=== PATIENT | female | born 1980 | race Caucasian/White ===

== ENCOUNTER 2020-02-17 06:19 | Observation (INO) | payer MEDICAID ==
[2020-02-14 09:49] LABS: BLOOD UREA NITROGEN,BUN 13 mg/dL (7.0-18.0); CARBON DIOXIDE,CO2 27.5 mmol/L (21.0-32.0); CHLORIDE,CL 107 mmol/L (98-107); GLUCOSE RANDOM 78 mg/dL (74-106); SODIUM,NA 143 mmol/L (136-145)
[2020-02-17] MEDS ORDERED: Fluorescein 5 ML Vial ONE (07:13)
[2020-02-17] MEDS ORDERED: Bupivacaine 0.25% 10 ML SDV ONE (07:13)
[2020-02-17] MEDS ORDERED: Bupivacaine 25%/EPINEPHrine/PF 30 ML ONE ×2 (07:14→13:24)
[2020-02-17] MEDS ORDERED: fentaNYL 100 MCG/2 ML SDV ONE (07:19)
[2020-02-17] MEDS ORDERED: Propofol 200 MG/20 ML SDV ONE (07:19)
[2020-02-17] MEDS ORDERED: Midazolam 1 MG/ML 2 ML SDV ONE (07:19)
[2020-02-17] MEDS ORDERED: Succinylcholine/Sod PF 100 MG/5 ML SYRINGE IV ONE (07:20)
[2020-02-17] MEDS ORDERED: Rocuronium Bromide 50 MG/5 ML Syringe ONE (07:20)
--- NOTE | 2020-02-17 07:23 | PCM.PREANE ---
Preanesthetic Assessment - Anesthesia/Transfusion/Family Hx Anesthesia History: Prior Anesthesia Without Reaction Other Type of Anesthesia Reaction Comment: "I cry when I wake up from anesthesia" Family History of Anesthesia Reaction: No Transfusion History: No Prior Transfusion(s) Type of Transfusion Reactions: Reports: Unknown Intubation History: Unknown - Review of Systems General: No Symptoms Pulmonary: No Symptoms Cardiovascular: No Symptoms Gastrointestinal: No Symptoms Neurological: No Symptoms Other: Reports: None - Physical Assessment Height: 5 ft 9.5 in Weight: 88.451 kg ASA Class: 2 Mental Status: Alert & Oriented x3 Airway Class: Mallampati = 2 Dentition: Reports: Normal Dentition Thyro-Mental Finger Breadths: 3 Mouth Opening Finger Breadths: 3 ROM/Head Extension: Full Lungs: Clear to Auscultation, Normal Respiratory Effort Cardiovascular: Regular Rate, Regular Rhythm - Lab Values: Laboratory Last Values WBC 5.41 K/uL (4.0-11.0) 02/14/20 09:23 RBC 4.39 M/uL (4.30-5.90) 02/14/20 09:23 Hgb 11.7 g/dL (12.0-16.0) L 02/14/20 09:23 Hct 38.0 % (36.0-46.0) 02/14/20 09:23 MCV 86.6 fL (80.0-98.0) 02/14/20 09:23 MCH 26.7 pg (27.0-32.0) L 02/14/20 09:23 MCHC 30.8 g/dL (31.0-37.0) L 02/14/20 09:23 RDW Std Deviation 53.3 fl (28.0-62.0) 02/14/20 09:23 RDW Coeff of Ryan 17 % (11.0-15.0) H 02/14/20 09:23 Plt Count 237 K/uL (150-400) 02/14/20 09:23 MPV 11.70 fL (7.40-12.00) 02/14/20 09:23 Nucleated RBC % 0.0 /100WBC 02/14/20 09:23 Nucleated RBCs # 0 K/uL 02/14/20 09:23 Sodium 143 mmol/L (136-145) 02/14/20 09:23 Potassium 4.0 mmol/L (3.5-5.1) 02/14/20 09:23 Chloride 107 mmol/L (98-107) 02/14/20 09:23 Carbon Dioxide 27.5 mmol/L (21.0-32.0) 02/14/20 09:23 BUN 13 mg/dL (7.0-18.0) 02/14/20 09:23 Creatinine 0.8 mg/dL (0.6-1.0) 02/14/20 09:23 Est Cr Clr Drug Dosing TNP 02/14/20 09:23 Estimated GFR (MDRD) > 60.0 ml/min 02/14/20 09:23 Glucose 78 mg/dL (74-106) 02/14/20 09:23 Calcium 8.8 mg/dL (8.5-10.1) 02/14/20 09:23 HCG, Qual NEGATIVE (NEG) 02/14/20 09:23 SARS-CoV-2 (PCR) NOT DETECTED (NOT DETECT) 02/14/20 09:29 Blood Type A POSITIVE 02/14/20 09:23 Antibody Screen NEGATIVE 02/14/20 09:23 - Allergies Allergies/Adverse Reactions: Allergies Allergy/AdvReac Type Severity Reaction Status Date / Time amoxicillin Allergy Rash Verified 02/13/20 09:43 Penicillins Allergy Rash Verified 02/13/20 09:43 wool Allergy Rash Verified 02/13/20 09:43 - Blood Blood Available: No - Anesthesia Plan Pre-Op Medication Ordered: None - Acknowledgements Anesthesia Type Planned: General Anesthesia Pt an Appropriate Candidate for the Planned Anesthesia: Yes Alternatives and Risks of Anesthesia Discussed w Pt/Guardian: Yes Pt/Guardian Understands and Agrees with Anesthesia Plan: Yes PreAnesthesia Questionnaire HEENT History: Reports: Other (See Below) Other HEENT History: wears glasses Cardiovascular History: Reports: None Respiratory History: Reports: None Gastrointestinal History: Reports: Other (See Below) Other Gastrointestinal History: occasional heartburn Genitourinary History: Reports: None [employer] PACKER History: Reports: , Spontaneous Other OB/BYN History: ETOP Musculoskeletal History: Reports: Back Pain, Chronic Other Musculoskeletal History: defect resulted in numerous surgeries to bilateral hands and rt foot (amniotic banding) Neurological History: Reports: None Psychiatric History: Reports: None Endocrine/Metabolic History: Reports: Hypothyroidism Hematologic History: Reports: None Immunologic History: Reports: None Oncologic (Cancer) History: Reports: None Dermatologic History: Reports: None - Infectious Disease History Infectious Disease History: Reports: None - Past Surgical History Head Surgeries/Procedures: Reports: None HEENT Surgical History: Reports: Adenoidectomy, Oral Surgery, Tonsillectomy Cardiovascular Surgical History: Reports: None Respiratory Surgical History: Reports: None GI Surgical History: Reports: None Female Surgical History: Reports: Other (See Below) Other Female Surgeries/Procedures: 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 Endocrine Surgical History: Reports: None Neurological Surgical History: Reports: None Musculoskeletal Surgical History: Reports: Other (See Below) Other Musculoskeletal Surgeries/Procedures:: multiple surgeries to hands and rt foot to correct defect Oncologic Surgical History: Reports: None Dermatological Surgical History: Reports: Skin Graft - Past Imaging History Past Imaging History: Reports: None - SUBSTANCE USE Tobacco Use Status *Q: Former Tobacco User (quit smoking about a month ago) Tobacco Use Within Last Twelve Months: Cigarettes Recreational Drug Type: Reports: Marijuana/Hashish - HOME MEDS Home Medications: Home Meds Acetaminophen [Tylenol] 2 tab PO ASDIRECTED PRN 02/13/20 [History] Levothyroxine Sodium [Synthroid] 100 mcg PO DAILY 02/13/20 [History] - CURRENT (IN HOUSE) MEDS Current Meds: Current Medications Lactated Ringer's (Ringers, Lactated) 1,000 mls @ 125 mls/hr IV ASDIRECTED [facility] Discontinued Medications Bupivacaine HCl (Sensorcaine-Mpf 0.25%) Confirm Administered Dose 10 ml .ROUTE .STK-MED ONE Stop: 02/17/20 07:14 Fluorescein Sodium (Ak-Fluor) Confirm Administered Dose 5 ml .ROUTE .STK-MED ONE Stop: 02/17/20 07:14 Bupivacaine HCl/Epinephrine Bitart (Sensorc Mpf 0.25%-Epi 1:[id number]) Confirm Administered Dose 30 mls @ as directed .ROUTE .STK-MED ONE Stop: 02/17/20 07:15
[2020-02-17] MEDS ORDERED: Methylene Blue 50 MG/10 ML Ampule ONE (07:24)
[2020-02-17] MEDS: Lactated Ringers 1,000 ML IV SCH ×3 (07:37→19:26)
[2020-02-17] MEDS ORDERED: Clindamycin Phosphate in D5W 900 MG in Premix Bag 1 BAG IV ONE ×2 (07:49)
[2020-02-17] MEDS ORDERED: WATER IV ONE ×2 (08:15)
[2020-02-17] MEDS ORDERED: GENTAMICIN IV ONE ×2 (08:15)
[2020-02-17] MEDS ORDERED: DEXTROSE 5% IV ONE ×2 (08:15)
[2020-02-17] MEDS ORDERED: Gentamicin 400 MG in Dextrose 5% in Water 100 ML IV ONE ×2 (08:15)
[2020-02-17] MEDS ORDERED: Ondansetron 4 MG/2 ML SDV ONE (08:19)
[2020-02-17] MEDS ORDERED: Dexamethasone 4 MG/ML 5 ML MDV ONE (08:19)
[2020-02-17] MEDS ORDERED: Glycopyrrolate 0.2 MG/ML SDV ONE ×2 (08:31→09:45)
[2020-02-17] MEDS ORDERED: ePHEDrine 50 MG/ML SDV ONE (08:31)
[2020-02-17] MEDS ORDERED: Ondansetron 4 MG/2 ML SDV IVPUSH PRN (09:06)
[2020-02-17] MEDS ORDERED: 50% Dextrose in Water 50 ML Syringe IVPUSH PRN (09:06)
[2020-02-17] MEDS ORDERED: Naloxone 0.4 MG/ML Syringe IVPUSH PRN (09:06)
[2020-02-17] MEDS ORDERED: Atropine 0.1 MG/ML 10 ML Syringe IVPUSH PRN ×2 (09:06)
[2020-02-17] MEDS ORDERED: EPINEPHrine 1:10,000 1 MG/10 ML Syringe IVPUSH PRN (09:06)
[2020-02-17] MEDS ORDERED: fentaNYL 100 MCG/2 ML SDV IVPUSH PRN (09:06)
[2020-02-17] MEDS ORDERED: Albuterol 0.083% 2.5 MG/3 ML Neb Soln NEB PRN (09:06)
[2020-02-17] MEDS ORDERED: Furosemide 40 MG/4 ML VIAL ONE (09:34)
[2020-02-17] MEDS ORDERED: Sugammadex Sodium 200 MG/2 ML VIAL ONE (09:46)
[2020-02-17] MEDS ORDERED: Ketorolac 30 MG/ML SDV ONE (09:49)
[2020-02-17] MEDS ORDERED: Acetaminophen/oxyCODONE 325-5 MG Tab PO PRN (10:03)
[2020-02-17] MEDS ORDERED: Ketorolac 30 MG/ML SDV IVPUSH ONE (10:03)
[2020-02-17] MEDS ORDERED: Promethazine 25 MG/ML SDV IM PRN (10:03)
[2020-02-17] MEDS ORDERED: Morphine 4 MG/ML Syringe IVPUSH PRN (10:03)
--- NOTE | 2020-02-17 10:10 | PCM.OPNOTE ---
- General Post-Op/Procedure Note Date of Surgery/Procedure: 02/17/20 Operative Procedure(s): Laparoscopic-assisted vaginal hysterectomy, bilateral salpingectomy, cystoscopy Findings: 8-week anteverted uterus, sound to 10cm Normal-appearing ovaries and fallopian tubes Endometriosis of posterior cul-de-sac Pre Op Diagnosis: 39yo . Heavy menstrual bleeding. Dysmenorrhea. Dyspareunia. Dyschezia. Suspected endometriosis and adenomyosis Post-Op Diagnosis: 39yo . Heavy menstrual bleeding. Dysmenorrhea. Dyspareunia. Dyschezia. Suspected endometriosis and adenomyosis Anesthesia Technique: General ET Tube Primary Surgeon: Ileana Orozco Plate Glass Installer: Karli Najera Pathology: Uterus, cervix, fallopian tubes Fluid Replacement, Intraop: 1,600 Output, Urine Amount: 50 EBL in mLs: 500 Complications: None Condition: Good
[2020-02-17] MEDS: HYDROmorphone 2 MG/ML Syringe IVPUSH PRN ×2 (10:22→10:29)
--- NOTE | 2020-02-17 10:48 | PCM.POSTAN ---
POST ANESTHESIA ASSESSMENT - MENTAL STATUS Mental Status: Alert, Oriented - VITAL SIGNS Vital Signs: Last Vital Signs Temp 36.8 C 02/17/20 10:02 Pulse 66 02/17/20 10:44 Resp 17 02/17/20 10:44 BP 102/62 02/17/20 10:44 Pulse Ox 96 02/17/20 10:44 - RESPIRATORY Respiratory Status: Respiratory Rate WNL, Airway Patent, O2 Saturation Stable - CARDIOVASCULAR CV Status: Pulse Rate WNL, Blood Pressure Stable - GASTROINTESTINAL GI Status: No Symptoms - PAIN Pain Score: 5 - POST OP HYDRATION Hydration Status: Adequate & Stable - OBSERVATIONS Free Text/Narrative:: No anesthesia problems
[2020-02-17] MEDS: Ondansetron 4 MG/2 ML SDV IVPUSH PRN ×2 (12:36→18:07)
--- NOTE | 2020-02-17 12:37 | OR ---
SURGEON: Ileana Orozco MD DATE OF PROCEDURE: 02/17/2020 PREOPERATIVE DIAGNOSES: 1. A 39-year-old G5, P3. 2. Heavy menstrual bleeding. 3. Dysmenorrhea. 4. Dyspareunia. 5. Suspected endometriosis and adenomyosis. POSTOPERATIVE DIAGNOSES: 1. A 39-year-old G5, P3. 2. Heavy menstrual bleeding. 3. Dysmenorrhea. 4. Dyspareunia. 5. Suspected endometriosis and adenomyosis. PROCEDURE: Laparoscopic-assisted vaginal hysterectomy, bilateral salpingectomy, cystoscopy. PRIMARY SURGEON: Ileana Orozco MD CUSTOM SHOE DESIGNER AND MAKER: Karli Najera M.D. ANESTHESIA: General endotracheal. COMPLICATIONS: None. ESTIMATED BLOOD LOSS: 500 mL. FLUIDS: 1600 mL LR. URINE OUTPUT: 50 mL clear yellow urine at the end of procedure. SPECIMENS: Uterus, cervix, and bilateral tubes. FINDINGS: Eight-week size anteverted uterus sounded to 10 cm. Normal-appearing ovaries and fallopian tubes. Endometriosis in the posterior cul-de-sac. DESCRIPTION OF PROCEDURE: The patient was taken to the OR with IV fluids running. General anesthesia was obtained without difficulty. Gentamicin and clindamycin were given for antibiotic prophylaxis. The patient was placed in the dorsal lithotomy position with legs in Yellofin stirrups. The patient was prepared and draped. A Mcdonnell catheter was inserted. A Graves speculum was inserted into the vagina. The anterior lip of the cervix was grasped with an an Allis clamp. A HUMI uterine manipulator was introduced. The Allis clamp and speculum were removed. The surgeon's gloves were changed. The superior umbilical skin was infiltrated with 0.25% bupivacaine without epinephrine. A small vertical skin incision was made in the umbilical fold. A 5 mm trocar was inserted into the abdomen under direct laparoscopic visualization. Pneumoperitoneum was established with carbon dioxide gas to a pressure of 15 mmHg. The pelvic anatomy was noted as above. Two 5 mm trocars were inserted in the bilateral lower quadrants under direct laparoscopic visualization after infiltration with 0.25% bupivacaine without epinephrine. The Trendelenburg position was obtained to facilitate moving bowel and omentum out of the pelvis. The uterus was elevated away from the pelvis through the uterine manipulator. The left ovary was retracted anteriorly with an atraumatic grasper away from the pelvic sidewall. Peristalsis of the left ureter was noted in the pelvic brim. The same procedure was repeated on the right side to observe peristalsis of the ureter. The left fallopian tube was from the ovary along the mesosalpinx with serial clamping, coagulating, and transecting with 5 mm LigaSure device. Round and broad ligaments were sequentially transected with the LigaSure device until the uterine artery was exposed. The uterine artery was clamped, coagulated, and transected with LigaSure. The procedure was repeated on the right side. Bladder flap was created. Laparoscopic resections were completed at this point. Pneumoperitoneum was released. The patient was repositioned in dorsal lithotomy position with hips flexed and thighs abducted. The uterine manipulator was removed. The cervix was grasped with a Vicenta tenaculum. A circumferential incision on the cervix was made with Bovie. Blunt and sharp dissection was performed with a long appropriate plane. The anterior cul-de-sac was entered without difficulty using the Metzenbaum scissors. Posterior cul-de-sac was entered sharply with Villalta scissors and bloody peritoneal fluid was noted. The uterosacral and cardinal ligaments were sequentially clamped, transected, and suture ligated. The uterus and fallopian tubes delivered intact through the vagina and were sent to Pathology. The vaginal angles were transfixed to the uterosacral ligament. A [id number] suture was used to obtain hemostasis along the left uterosacral pedicle. The vaginal cuff was closed with a running lock stitch of 0 Vicryl suture. A 70-degree cystoscope was introduced through the urethra into the bladder. Ureteral orifices were noted bilaterally to efflux fluorescein-stained urine. Systematic inspection of the bladder was completed and there were no obvious lesions. Pneumoperitoneum was re-established and the pelvis was thoroughly inspected with no active bleeding noted. All instruments removed from the abdomen and vagina. The laparoscopic incisions were closed with interrupted stitch of 4-0 Monocryl. A pressure dressing was placed over each incision. All counts were correct x2. The patient was awakened and taken to the recovery room in stable condition. [id number] / MODL /[id number] EFREN
--- NOTE | 2020-02-17 17:47 | PCM.SN.2 ---
- Free Text/Narrative Note: Patient doing well thus far post-op. Has ambulated and had catheter removed. Some nausea with applesauce after pain medication, but otherwise nausea controlled. Minimal vaginal bleeding. Pain controlled with oral pain medications. VSS. Overnight care signed out to Dr. Mercer. I will see patient in the morning and likely discharge home.
[2020-02-17] MEDS: Ketorolac 30 MG/ML SDV IVPUSH PRN (18:07)
[2020-02-17] MEDS: Docusate Sodium 100 MG Cap PO SCH (20:47)
[2020-02-17] MEDS: Gabapentin 300 MG Cap PO SCH (20:47)
[2020-02-18] MEDS: Ketorolac 30 MG/ML SDV IVPUSH PRN (04:07)
[2020-02-18 06:31] LABS: BLOOD UREA NITROGEN,BUN 9 mg/dL (7.0-18.0); CARBON DIOXIDE,CO2 25.3 mmol/L (21.0-32.0); CHLORIDE,CL 105 mmol/L (98-107); GLUCOSE RANDOM 101 mg/dL (74-106); POTASSIUM,K 3.8 mmol/L (3.5-5.1); SODIUM,NA 140 mmol/L (136-145)
[2020-02-18] MEDS: Acetaminophen/oxyCODONE 325-5 MG Tab PO PRN ×2 (06:43→11:05)
[2020-02-18] MEDS ORDERED: Levothyroxine 100 MCG Tab PO SCH (07:30)
[2020-02-18] MEDS: Gabapentin 300 MG Cap PO SCH (09:03)
[2020-02-18] MEDS: Docusate Sodium 100 MG Cap PO SCH (09:03)
--- NOTE | 2020-02-18 10:11 | PCM.PN ---
- General Info Date of Service: 02/18/20 Functional Status: Reports: Pain Controlled, Tolerating Diet, Ambulating, Urinating - Review of Systems General: Reports: No Symptoms. Denies: Fever HEENT: Reports: No Symptoms Pulmonary: Reports: No Symptoms Cardiovascular: Reports: No Symptoms Gastrointestinal: Reports: No Symptoms Genitourinary: Reports: No Symptoms Musculoskeletal: Reports: No Symptoms Skin: Reports: No Symptoms Neurological: Reports: No Symptoms Psychiatric: Reports: No Symptoms - Patient Data Vitals - Most Recent: Last Vital Signs Temp 36.2 C 02/18/20 04:57 Pulse 98 02/18/20 04:57 Resp 18 02/18/20 04:57 BP 109/67 02/18/20 04:57 Pulse Ox 98 02/18/20 04:57 Weight - Most Recent: 88.451 kg I&O - Last 24 Hours: Intake & Output 02/17/20 02/18/20 02/18/20 22:59 06:59 14:59 Intake Total 800 200 Output Total 750 550 Balance 50 -350 Lab Results Last 24 Hours: Laboratory Results - last 24 hr 02/18/20 02/18/20 Range/Units 05:30 05:30 WBC 10.25 (4.0-11.0) K/uL RBC 3.62 L (4.30-5.90) M/uL Hgb 9.7 L (12.0-16.0) g/dL Hct 31.1 L (36.0-46.0) % MCV 85.9 (80.0-98.0) fL MCH 26.8 L (27.0-32.0) pg MCHC 31.2 (31.0-37.0) g/dL RDW Std Deviation 54.1 (28.0-62.0) fl RDW Coeff of Ryan 17 H (11.0-15.0) % Plt Count 197 (150-400) K/uL MPV 12.20 H (7.40-12.00) fL Neut % (Auto) 75.9 (48.0-80.0) % Lymph % (Auto) 13.6 L (16.0-40.0) % [place] % (Auto) 10.2 (0.0-15.0) % Eos % (Auto) 0.2 (0.0-7.0) % Baso % (Auto) 0.1 (0.0-1.5) % Neut # (Auto) 7.8 H (1.4-5.7) K/uL Lymph # (Auto) 1.4 (0.6-2.4) K/uL [place] # (Auto) 1.1 H (0.0-0.8) K/uL Eos # (Auto) 0.0 (0.0-0.7) K/uL Baso # (Auto) 0.0 (0.0-0.1) K/uL Nucleated RBC % 0.0 /100WBC Nucleated RBCs # 0 K/uL Sodium 140 (136-145) mmol/L Potassium 3.8 (3.5-5.1) mmol/L Chloride 105 (98-107) mmol/L Carbon Dioxide 25.3 (21.0-32.0) mmol/L BUN 9 (7.0-18.0) mg/dL Creatinine 1.0 (0.6-1.0) mg/dL Est Cr Clr Drug Dosing 81.89 mL/min Estimated GFR (MDRD) > 60.0 ml/min Glucose 101 (74-106) mg/dL Calcium 8.4 L (8.5-10.1) mg/dL Med Orders - Current: Current Medications Docusate Sodium (Colace) 100 mg PO BID [facility] Last Admin: 02/18/20 09:03 Dose: 100 mg Documented by: Gabapentin (Neurontin) 300 mg PO BID [facility] Last Admin: 02/18/20 09:03 Dose: 300 mg Documented by: Gentamicin Sulfate (Pharmacy To Dose - Gentamicin) 1 dose .XX ASDIRECTED [facility] Ibuprofen (Motrin) 800 mg PO Q8H PRN PRN Reason: Pain (mild 1-3) Ketorolac Tromethamine (Toradol) 30 mg IVPUSH Q6H PRN PRN Reason: Pain (severe 7-10) Stop: 02/22/20 10:03 Last Admin: 02/18/20 04:07 Dose: 30 mg Documented by: Levothyroxine Sodium (Synthroid) 100 mcg PO ACBREAKFAST [facility] Last Admin: 02/18/20 06:44 Dose: 100 mcg Documented by: Morphine Sulfate (Morphine) 4 mg IVPUSH Q2H PRN PRN Reason: Pain (severe 7-10) Ondansetron HCl (Zofran) 4 mg IVPUSH Q6H PRN PRN Reason: Nausea/Vomiting Last Admin: 02/17/20 18:07 Dose: 4 mg Documented by: Oxycodone/Acetaminophen (Percocet 325-5 Mg) 1 tab PO Q4H PRN PRN Reason: Pain (moderate 4-6) Last Admin: 02/18/20 06:43 Dose: 1 tab Documented by: Oxycodone/Acetaminophen (Percocet 325-5 Mg) 2 tab PO Q4H PRN PRN Reason: Pain (moderate 4-6) Last Admin: 02/17/20 13:07 Dose: 2 tab Documented by: Promethazine HCl (Phenergan) 25 mg IM Q6H PRN PRN Reason: Nausea/Vomiting Discontinued Medications Albuterol (Proventil Neb Soln) 2.5 mg NEB ONETIME PRN PRN Reason: Wheezing Atropine Sulfate (Atropine 0.1 Mg/Ml) 0.5 mg IVPUSH ASDIRECTED PRN PRN Reason: Hypo-perfusion Atropine Sulfate (Atropine 0.1 Mg/Ml) 1 mg IVPUSH ASDIRECTED PRN PRN Reason: Hypo-Perfusion Bupivacaine HCl (Sensorcaine-Mpf 0.25%) Confirm Administered Dose 10 ml .ROUTE .STK-MED ONE Stop: 02/17/20 07:14 Dexamethasone (Dexamethasone) Confirm Administered Dose 20 mg .ROUTE .STK-MED ONE Stop: 02/17/20 08:20 Dextrose/Water (Dextrose 50% In Water) 50 ml IVPUSH ASDIRECTED PRN PRN Reason: Hypoglycemia Ephedrine Sulfate (Ephedrine Sulfate) Confirm Administered Dose 50 mg .ROUTE .STK-MED ONE Stop: 02/17/20 08:32 Epinephrine HCl (Epinephrine 1:10,000) 1 mg IVPUSH ASDIRECTED PRN PRN Reason: ACLS Guidelines Fentanyl (Sublimaze) Confirm Administered Dose 100 mcg .ROUTE .STK-MED ONE Stop: 02/17/20 07:20 Fentanyl (Sublimaze) 50 mcg IVPUSH Q5M PRN PRN Reason: Pain Fluorescein Sodium (Ak-Fluor) Confirm Administered Dose 5 ml .ROUTE .STK-MED ONE Stop: 02/17/20 07:14 Furosemide (Lasix) Confirm Administered Dose 40 mg .ROUTE .STK-MED ONE Stop: 12/18/20 09:35 Glycopyrrolate (Robinul) Confirm Administered Dose 0.2 mg .ROUTE .STK-MED ONE Stop: 02/17/20 08:32 Glycopyrrolate (Robinul) Confirm Administered Dose 0.4 mg .ROUTE .STK-MED ONE Stop: 02/17/20 09:46 Hydromorphone HCl (Dilaudid) 0.5 mg IVPUSH .Q5MIN PRN PRN Reason: Pain (severe 7-10) Stop: 02/18/20 09:06 Last Admin: 02/17/20 10:29 Dose: 0.5 mg Documented by: Lactated Ringer's (Ringers, Lactated) 1,000 mls @ 125 mls/hr IV ASDIRECTED [facility] Last Admin: 02/17/20 19:26 Dose: 125 mls/hr Documented by: Bupivacaine HCl/Epinephrine Bitart (Sensorc Mpf 0.25%-Epi 1:[id number]) Confirm Administered Dose 30 mls @ as directed .ROUTE .STK-MED ONE Stop: 02/17/20 07:15 Acetaminophen (Ofirmev) Confirm Administered Dose 100 mls @ as directed .ROUTE .STK-MED ONE Stop: 02/17/20 07:23 Clindamycin Phosphate 900 mg/ (Premix) 50 mls @ 89.286 mls/hr IV ONETIME ONE Stop: 02/17/20 08:22 Last Admin: 02/17/20 08:01 Dose: 89.286 mls/hr Documented by: Gentamicin Sulfate 400 mg/ (Dextrose/Water) 110 mls @ 220 mls/hr IV ONETIME ONE Stop: 02/17/20 08:44 Last Admin: 02/17/20 08:27 Dose: 220 mls/hr Documented by: Bupivacaine HCl/Epinephrine Bitart (Sensorc Mpf 0.25%-Epi 1:[id number]) Confirm Administered Dose 30 mls @ as directed .ROUTE .STK-MED ONE Stop: 02/17/20 13:25 Ketorolac Tromethamine (Toradol) Confirm Administered Dose 30 mg .ROUTE .STK-MED ONE Stop: 02/17/20 09:50 Ketorolac Tromethamine (Toradol) 30 mg IVPUSH ONETIME ONE Stop: 12/18/20 10:04 Last Admin: 02/17/20 09:45 Dose: 30 mg Documented by: Lidocaine HCl (Xylocaine-Mpf 1%) Confirm Administered Dose 5 ml .ROUTE .STK-MED ONE Stop: 02/17/20 07:21 Methylene Blue (Provayblue) Confirm Administered Dose 50 mg .ROUTE .STK-MED ONE Stop: 02/17/20 07:25 Midazolam HCl (Versed 1 Mg/Ml) Confirm Administered Dose 2 mg .ROUTE .STK-MED ONE Stop: 02/17/20 07:20 Naloxone HCl (Narcan) 0.1 mg IVPUSH ASDIRECTED PRN PRN Reason: Respiratory Depression Ondansetron HCl (Zofran) Confirm Administered Dose 4 mg .ROUTE .STK-MED ONE Stop: 02/17/20 08:20 Ondansetron HCl (Zofran) 4 mg IVPUSH ONETIME PRN PRN Reason: Nausea/Vomiting Propofol (Diprivan 20 Ml) Confirm Administered Dose 200 mg .ROUTE .STK-MED ONE Stop: 02/17/20 07:20 Rocuronium [place]a (Rocuronium Mesa) Confirm Administered Dose 50 mg .ROUTE .STK-MED ONE Stop: 02/17/20 07:21 Sugammadex Sodium (Bridion) Confirm Administered Dose 200 mg .ROUTE .STK-MED ONE Stop: 02/17/20 09:47 - Exam General: Alert, Oriented Neck: Supple Lungs: Normal Respiratory Effort GI/Abdominal Exam: Soft, No Distention, Tender (appropriate tenderness to palpation) Extremities: No Pedal Edema Skin: Warm, Dry, Intact Wound/Incisions: Dressing Dry and Intact Neurological: No New Focal Deficit Psy/Mental Status: Alert, Normal Affect, Normal Mood Sepsis Event Note - Evaluation Sepsis Screening Result: No Definite Risk - Focused Exam Vital Signs: Vital Signs Temp Pulse Resp BP Pulse Ox 02/18/20 04:57 36.2 C 98 18 109/67 98 02/18/20 04:47 36.4 C 98 18 109/67 98 02/18/20 00:28 36.9 C 71 18 118/59 L 96 - Problem List & Annotations (1) Heavy menses SNOMED Code(s): 082507635 Code(s): N92.0 - EXCESSIVE AND FREQUENT MENSTRUATION WITH REGULAR CYCLE Status: Acute Current Visit: Yes (2) Dysmenorrhea SNOMED Code(s): 419288620 Code(s): N94.6 - DYSMENORRHEA, UNSPECIFIED Status: Acute Current Visit: Yes (3) Dyspareunia SNOMED Code(s): 95694940 Code(s): SDB8277 - Status: Acute Current Visit: Yes (4) S/P laparoscopic assisted vaginal hysterectomy (LAVH) SNOMED Code(s): 783691615, 32635696, 825940959 Code(s): Z90.710 - ACQUIRED ABSENCE OF BOTH CERVIX AND UTERUS Status: Acute Current Visit: Yes - Problem List Review Problem List Initiated/Reviewed/Updated: Yes - My Orders Last 24 Hours: My Active Orders 02/17/20 10:03 Patient Status [ADT] Routine Antiembolic Devices [RC] PER UNIT ROUTINE May Shower [RC] ASDIRECTED Notify Provider Intake and Out [RC] ASDIRECTED Notify Provider Vital Signs [RC] ASDIRECTED Oxygen Therapy [RC] ASDIRECTED RT Incentive Spirometry [RC] Q2HWA Up With Assistance [RC] PER UNIT ROUTINE Up ad Tigist [RC] PER UNIT ROUTINE Urinary Catheter Removal [RC] Per Unit Routine Vital Signs [RC] PER UNIT ROUTINE Acetaminophen/oxyCODONE [Percocet 325-5 MG] 1 tab PO Q4H PRN Acetaminophen/oxyCODONE [Percocet 325-5 MG] 2 tab PO Q4H PRN Ketorolac [Toradol] 30 mg IVPUSH Q6H PRN Morphine 4 mg IVPUSH Q2H PRN Ondansetron [Zofran] 4 mg IVPUSH Q6H PRN Promethazine [Phenergan] 25 mg IM Q6H PRN Peripheral IV Discontinue [OM.PC] Routine Sequential Compression Device [OM.PC] Per Unit Routine Resuscitation Status Routine 02/17/20 Lunch Regular Diet [DIET] 02/17/20 21:00 Docusate Sodium [Colace] 100 mg PO BID Gabapentin [Neurontin] 300 mg PO BID 02/18/20 07:30 Levothyroxine [Synthroid] 100 mcg PO ACBREAKFAST 02/18/20 10:09 Ready for Discharge [RC] PER UNIT ROUTINE 02/22/20 16:00 Ibuprofen [Motrin] 800 mg PO Q8H PRN - Assessment Assessment:: 39yo s/p LAVH, BS, cysto for heavy menstrual bleeding, dysmenorrhea, dyspareunia, and suspected adenomyosis & endometriosis, POD#1 - Plan Plan:: 1. Plan to discharge home this morning. Reviewed discharge instructions/precautions. Prescriptions sent to [facility] in [place], [place]. 2. Continue Levothyroxine for hypothyroidism. 3. Follow-up in clinic as scheduled.
[2020-02-22] MEDS ORDERED: Ibuprofen 800 MG Tab PO PRN (16:00)
== END 2020-02-18 11:15 | disposition home or self-care (01) ==
LOC: MW.SDS 06:19 → MW.MS 10:18
PROVIDERS: ADMIT Obstetrics & Gynecology; ATTEND Obstetrics & Gynecology
DX: N85.8 Other specified noninflammatory disorders of uterus (principal); N92.0 Excessive and frequent menstruation with regular cycle; E03.9 Hypothyroidism, unspecified; N94.6 Dysmenorrhea, unspecified; Z79.899 Other long term (current) drug therapy; Z98.890 Other specified postprocedural states; Z87.891 Personal history of nicotine dependence; Z88.0 Allergy status to penicillin; Z90.49 Acquired absence of other specified parts of digestive tract; Z79.890 Hormone replacement therapy; Z01.812 Encounter for preprocedural laboratory examination; Z20.828 Contact with and (suspected) exposure to other viral communicable diseases
CPT/HCPCS: 36415; 58552; 80048; 84703; 85025; 85027; 86850; 86900; 86901; 87635; A9270; G0378; J0131; J1100; J1170; J1580; J1885; J1940; J2001; J2250; J2405; J2704; J3490; J7060; J7120; 88307; J0330; J3010; U0002